=== PATIENT | male | born 1950 | race Caucasian/White ===

== ENCOUNTER 2018-03-27 08:56 | Outpatient (CLI) | payer MEDICARE, BC ==
[~2018-03-27 08:56] MED LIST: Gadobenate Dimeglumine 529 MG/1 ML (20ML VIAL) ONE
== END 2018-03-27 08:57 | disposition home or self-care (01) ==
LOC: BICMRI 08:56
PROVIDERS: ATTEND Psychiatry & Neurology Neurology
DX: R42 Dizziness and giddiness (principal); J32.9 Chronic sinusitis, unspecified
CPT/HCPCS: 70553; 82565; A9579

== ENCOUNTER 2021-11-29 07:03 | Outpatient (CLI) | payer MEDICARE, BC ==
[2021-11-29 08:12] LABS: Estimated GFR-MDRD - POC Greater than 90
== END 2021-11-29 07:04 | disposition home or self-care (01) ==
LOC: CT 07:03
PROVIDERS: ATTEND Neurological Surgery
DX: R42 Dizziness and giddiness (principal); R55 Syncope and collapse
CPT/HCPCS: 70496; 70498; 82565